=== PATIENT | female | born 1975 | race Caucasian/White ===

== ENCOUNTER 2019-03-13 00:27 | Emergency (ER) | payer BC ==
[~2019-03-13] VITALS: Ht 170.2 cm; Wt 90.7 kg
[2019-03-13] MEDS ORDERED: IPRATROPIUM BROMIDE 0.5 MG/2.5 ML NEBU ONE (02:12)
[2019-03-13] MEDS ORDERED: IPRATROPIUM BROMIDE 0.5 MG/2.5 ML NEBU NEB ONE (02:15)
--- NOTE | 2019-03-13 03:12 | NUR ---
Patient discharged to home in stable conditon. Written and verbal after care instructions given. Patient verbalizes understanding of instructions. Patient ambulating with steady gait
[2019-03-13 03:13] VITALS: BP 124/88
== END 2019-03-13 03:12 | disposition home or self-care (01) ==
LOC: ER 00:35
DX: O99.513 Diseases of the respiratory system complicating pregnancy, third trimester (principal); J20.9 Acute bronchitis, unspecified; Z91.013 Allergy to seafood; Z3A.00 Weeks of gestation of pregnancy not specified
CPT/HCPCS: 87400; A4663; J3590